=== PATIENT | male | born 1990 | race Hispanic/Latino ===

== ENCOUNTER 2016-07-25 10:54 | Emergency (ER) | payer OTHER ==
[~2016-07-25] VITALS: Ht 170.2 cm; Wt 86.2 kg
--- NOTE | 2016-07-25 11:10 | ED GI/GU/ABDOMINAL COMPLAINT ---
History of Present Illness General Chief Complaint: Abdominal Pain/Flank Pain Stated Complaint: ABDOMINAL PAIN Source: patient Exam Limitations: no limitations Vital Signs & Intake/Output Vital Signs & Intake/Output Vital Signs Date Time Temp Pulse Resp B/P Pulse O2 O2 Flow FiO2 Ox Delivery Rate 07/25 1312 98.2 78 20 102/54 98 Room Air 07/25 1217 97.0 70 18 127/59 96 Room Air 07/25 1136 99 Room Air 07/25 1057 97.1 87 16 113/74 97 Room Air Allergies Coded Allergies: No Known Allergies (07/25/16) Reconcile Medications Ondansetron (Zofran Odt) 4 MG TAB.RAPDIS 1 TAB SL TID PRN nausea Pantoprazole Sodium (Protonix) 40 MG TABLET.DR 1 TAB PO DAILY upper abdominal pain Triage Note: PT STATES HE IS HAVING ACID REFLUX AND HIS STOMACH FEELS LIKE IT'S RUMBLING. PT STATES HE IS HAVING N/V/D Triage Nurses Notes Reviewed? yes HPI: Patient is a 26-year-old male presents complaining of upper abdominal pain that awoke him from sleep at 5 AM this morning. She woke with a bloating sensation, significant burping and a taste of an acid sensation. Patient vomited twice this morning and reports that his emesis was "stomach acid". 3-4 episodes of watery diarrhea. Patient's children have a stomach virus. Subjective fevers yesterday prior to onset of symptoms. No fevers today. Symptoms are currently severe. Last alcohol intake was 2 days ago "a couple of shots", patient reports last time he drank alcohol prior to that was several months ago. Patient denies suspicious food intake. Past History Travel History Traveled to [place] past 21 day No Medical History Any Pertinent Medical History? none Surgical History Surgical History: non-contributory Psychosocial History What is your primary language Albanian Tobacco Use: Current Daily Use Daily Tobacco Use Amount/Type: => 5 Cigarettes daily ETOH Use: occasional use Illicit Drug Use: marijuana Family History Hx Contributory? No Review of Systems Review of Systems Constitutional: Reports: fever (none today). Denies: chills. EENTM: Reports: no symptoms. Respiratory: Denies: cough, short of breath. Cardiovascular: Denies: chest pain. GI: Reports: see HPI. Genitourinary: Reports: no symptoms. Musculoskeletal: Reports: no symptoms. Skin: Reports: no symptoms. Neurological/Psychological: Reports: no symptoms. Hematologic/Endocrine: Reports: no symptoms. Immunologic/Allergic: Reports: no symptoms. Physical Exam Physical Exam General Appearance: well developed/nourished, alert, awake Head: atraumatic, normal appearance Eyes: Bilateral: normal appearance, PERRL, EOMI. Ears, Nose, Throat, Mouth: hearing grossly normal, moist mucous membrane Neck: normal inspection, supple, full range of motion Respiratory: normal breath sounds, chest non-tender, no respiratory distress, lungs clear Cardiovascular: regular rate/rhythm Gastrointestinal: normal bowel sounds, soft, mild diffuse lower abdominal tenderness. Diffuse upper abdominal tenderness greatest in the epigastric area. Negative Cervantes sign. Back: normal inspection, normal range of motion Extremities: normal range of motion Neurologic/Psych: no motor/sensory deficits, awake, alert, oriented x 3, normal gait, normal mood/affect Skin: normal color Core Measures ACS in differential dx? No Severe Sepsis Present: No Septic Shock Present: No Progress Differential Diagnosis: appendicitis, biliary colic, cholecystitis, diverticulitis, gastritis, hepatitis, ischemic bowel, inflamm bowel dis, Nella -Destinee tear, pancreatitis, PUD/GERD, SBO Plan of Care: Orders Procedure Date/time Status LIPASE 07/25 1117 Complete COMPREHENSIVE METABOLIC PANEL 07/25 1117 Complete CBC WITHOUT DIFFERENTIAL 07/25 1117 Complete Laboratory Tests 07/25/16 1126: Anion Gap 10, Estimated GFR > 60, BUN/Creatinine Ratio 16.7, Glucose 100 H, Calcium 9.3, Total Bilirubin 0.5, AST 19, ALT 47, Alkaline Phosphatase 60, Total Protein 7.2, Albumin 4.3, Globulin 2.9, Albumin/Globulin Ratio 1.5, Lipase 14 L , CBC w Diff NO MAN DIFF REQ, RBC 4.60 L, MCV 90.1, MCH 30.2, RDW 14.2, MPV 7.8 , Gran % 79.2 H, Lymphocytes % 9.7 L, Monocytes % 9.3, Eosinophils % 1.8, Basophils % 0 L, Absolute Granulocytes 6.5, Absolute Lymphocytes 0.8 L, Absolute Monocytes 0.8 H, Absolute Eosinophils 0.1, Absolute Basophils 0, PUBS MCHC 33.5 07/25/2016 1:02:39 PM: Patient reports significant improvement in his nausea and upper abdominal pain. Continues with some upper abdominal pressure. Results of labs discussed with patient. Patient tolerating oral intake, afebrile, no peritoneal signs on exam. Abdominal imaging deferred. Patient appears stable for discharge. (FIDE CURRIE,CHAIM) Initial ED EKG: none Departure Departure Time of Disposition: 1303 Disposition: HOME OR SELF CARE Condition: Stable Clinical Impression Primary Impression: Upper abdominal pain Referrals: AGUSTÍN STALLINGS MD PATIENT HAS NO PRIMARY CARE DR (PCP/Family) Additional Instructions: Clear liquid diet for the next 24 hours then advance your diet as tolerated. Return to the ER if fevers, pain localizes to the right lower abdomen, or worsening of symptoms. Follow up with Dr. Stallings(primary doctor) to establish a primary doctor and for further evaluation. Call Wednesday for appointment. Departure Forms: Customer Survey General Discharge Information Prescriptions: Current Visit Scripts Ondansetron (Zofran Odt) 1 TAB SL TID PRN nausea #10 TAB Pantoprazole Sodium (Protonix) 1 TAB PO DAILY #14 TAB
[2016-07-25 11:41] LABS: ABSOLUTE BASOPHIL COUNT 0 /CUMM (0.0-0.2); ABSOLUTE EOSINOPHIL COUNT 0.1 /CUMM (0.0-0.7); ABSOLUTE GRANULOCYTE CT 6.5 /CUMM (1.4-6.5); ABSOLUTE LYMPH COUNT 0.8 /CUMM (1.2-3.4); ABSOLUTE MONOCYTE COUNT 0.8 /CUMM (0.10-0.60); BASOPHIL % 0 % (0.0-2.0); EOSINOPHIL % 1.8 % (0-5); GRANULOCYTE % 79.2 % (42.2-75.2); HEMATOCRIT 41.4 % (42-52); MEAN CORPUSCULAR HGB 30.2 PG (27.0-31.0); MEAN CORPUSCULAR HGB CONC 33.5 G/DL (33.0-37.0); MEAN CORPUSCULAR VOLUME 90.1 FL (80.0-94.0); MEAN PLATELET VOLUME 7.8 FL (7.4-10.4); PLATELET COUNT 202 /CUMM (130-400); RBC DISTRIBUTION WIDTH 14.2 % (11.5-14.5); WHITE BLOOD CELL COUNT 8.2 /CUMM (4.8-10.8)
[2016-07-25] MEDS ORDERED: ZOFRAN ODT4 M1 SL (13:05)
[2016-07-25] MEDS ORDERED: PROTONIX40 M3 PO (13:05)
[2016-07-25 13:12] VITALS: BP 102/54
== END 2016-07-25 13:13 ==
LOC: ERH 10:54
PROVIDERS: Physician Assistant
DX: R10.13 Epigastric pain (principal)
CPT/HCPCS: 96374; 96375; J2405